=== PATIENT | female | born 1960 | race Caucasian/White ===

== ENCOUNTER 2016-11-14 07:32 | Inpatient (IN) | payer OTHER ==
--- NOTE | 2016-11-09 09:45 | Anesthesia Consultation ---
Anesthesia Consult and Med Hx Date of service: 11/09/16 - Airway Anesthetic Teeth Evaluation: Good ROM Head & Neck: Adequate Mental/Hyoid Distance: Adequate Mallampati Class: Class II Intubation Access Assessment: Probably Good - Pulmonary Exam CTA: Yes - Cardiac Exam Cardiac Exam: RRR - Pre-Operative Health Status ASA Pre-Surgery Classification: ASA1 Proposed Anesthetic Plan: General Nerve Block: TAP - Pulmonary Hx Asthma: No COPD: No Hx Pneumonia: No - Cardiovascular System Hx Hypertension: No - Central Nervous System Hx Psychiatric Problems: No - Endocrine Hx End Stage Renal Disease: No - Other Systems Hx Cancer: No
[2016-11-09 10:06] LABS: Basophils % (Auto) 0.6 % (0.0-1.8); Hematocrit 41.2 % (30.3-42.9); Mean Corpuscular HGB Conc 34 % (30-34); Mean Corpuscular Hemoglobin 31 pg (28-32); Mean Corpuscular Volume 89 fl (79-97); Platelet Count 219 K/mm3 (140-440); Red Cell Distribution Width 13.2 % (13.2-15.2); White Blood Count 5.4 K/mm3 (4.5-11.0)
[2016-11-09 10:22] LABS: Bacteria,Urine 1+ /HPF (Negative); Bilirubin,Urine NEG (Negative); Blood,Urine NEG (Negative); Ketones,Urine NEG (Negative); Leukocyte Esterase,Urine NEG (Negative); Mucus,Urine FEW /HPF; Nitrite,Urine NEG (Negative); Protein,Urine <15 mg/dL mg/dL (Negative); Urobilinogen,Urine < 2.0 mg/dL (<2.0)
[2016-11-09 11:29] LABS: Alanine Aminotransferase 18 units/L (7-56); Albumin 4.1 g/dL (3.9-5); Albumin/Globulin Ratio 1.5 %; Alkaline Phosphatase 68 units/L (35-129); Anion Gap 18 mmol/L; Bilirubin,Total 0.5 mg/dL (0.1-1.2); Blood Urea Nitrogen 9 mg/dL (7-17); Carbon Dioxide 23 mmol/L (22-30); Chloride 104.7 mmol/L (98-107); Glucose 96 mg/dL (65-100); Potassium 3.9 mmol/L (3.6-5.0); Sodium 142 mmol/L (137-145); Total Protein 6.8 g/dL (6.3-8.2)
[~2016-11-14 07:32] MED LIST: DILAUDID IV PRN; NACL 0.9% 1000 ML 1,000 ML IV SCH; NEURONTIN PO NR; PEPCID PO NR; SUBLIMAZE IV NR; VERSED IV NR; ZOFRAN IV PRN
[2016-11-14] MEDS ORDERED: MARCAINE-EPI 0.5%-1:200,000 INFILTRATI ONE (07:41)
[2016-11-14] MEDS ORDERED: MARCAINE-EPI 0.25%-1:200,000 INFILTRATI ONE (07:42)
[2016-11-14] MEDS ORDERED: XYLOCAINE 1% 20 mL ONE ×2 (07:43→12:55)
[2016-11-14] MEDS ORDERED: DILAUDID ONE (07:45)
[2016-11-14] MEDS ORDERED: DIPRIVAN 10 MG/ML IV ONE (07:45)
[2016-11-14] MEDS ORDERED: XYLOCAINE MPF 2% ONE (07:46)
[2016-11-14] MEDS ORDERED: ZEMURON IV ONE (07:46)
[2016-11-14] MEDS ORDERED: NACL BACTERIOSTATIC INFILTRATI ONE (08:10)
[2016-11-14] MEDS ORDERED: MARCAINE 0.5% 30 ML INFILTRATI ONE (08:29)
[2016-11-14] MEDS ORDERED: NEOSPORIN GU IR ONE ×2 (08:29→13:31)
[2016-11-14] MEDS ORDERED: ANCEF/STERILE WATER 2 GM/20 ML IV NR (09:00)
[2016-11-14] MEDS ORDERED: FLAGYL 500 MG/100 ML 500 MG/100 ML BAG IV ONE (09:32)
[2016-11-14] MEDS ORDERED: METHYLENE BLUE ONE (12:02)
[2016-11-14] MEDS ORDERED: DECADRON ONE ×2 (12:05→12:09)
[2016-11-14] MEDS ORDERED: NEOSTIGMINE ONE (12:05)
[2016-11-14] MEDS ORDERED: NACL 0.9% 1000 ML 1,000 ML ONE (12:05)
[2016-11-14] MEDS ORDERED: ROBINUL ONE (12:06)
[2016-11-14] MEDS ORDERED: ZOFRAN ONE (12:08)
[2016-11-14] MEDS ORDERED: METHYLENE BLUE IV ONE (12:30)
[2016-11-14] MEDS ORDERED: NACL P/F VIAL (10 ML) 20 ML ONE (12:55)
[2016-11-14] MEDS ORDERED: PREMARIN VG ONE ×2 (12:59→13:32)
[2016-11-14] MEDS ORDERED: MARCAINE 0.5% INFILTRATI ONE (13:30)
[2016-11-14] MEDS ORDERED: NACL 0.9% IR ONE (13:30)
[2016-11-14] MEDS ORDERED: XYLOCAINE 1% 20 mL INFILTRATI ONE (13:31)
[2016-11-14] MEDS ORDERED: NACL P/F VIAL (10 ML) INFILTRATI ONE (13:33)
[2016-11-14] MEDS ORDERED: PERCOCET 5/325 PO PRN (13:57)
[2016-11-14] MEDS ORDERED: ZOFRAN PO PRN (13:57)
[2016-11-14] MEDS ORDERED: SODIUM CHLORIDE FLUSH SYRINGE 10 ML IV PRN (13:57)
[2016-11-14] MEDS ORDERED: MILK OF MAGNESIA PO PRN (13:57)
[2016-11-14] MEDS ORDERED: TYLENOL PO PRN (13:57)
[2016-11-14] MEDS ORDERED: REGLAN IV PRN (13:57)
[2016-11-14] MEDS ORDERED: REGLAN PO PRN (13:57)
[2016-11-14] MEDS ORDERED: MORPHINE IV PRN ×2 (13:57)
[2016-11-14] MEDS ORDERED: ZOFRAN IV PRN (13:57)
--- NOTE | 2016-11-14 14:18 | Short Stay Summary ---
Short Stay Documentation Date of service: 11/14/16 - History H&P: obtained from office - Allergies and Medications Current Medications: Allergies hydrocodone Allergy (Verified 11/08/16 11:36) nausea and vomiting Home Medications Medication Instructions Recorded Confirmed Last Taken Type No Known Home Medications [No 11/08/16 11/08/16 Unknown History Reported Home Medications] Active Medications Acetaminophen (Tylenol) 650 mg PO Q4H PRN PRN Reason: Pain, Mild (1-3) Cefazolin Sodium (Ancef/Sterile Water 2 Gm/20 Ml) 2 gm IV PREOP NR Stop: 11/14/16 21:00 Celecoxib (Celebrex) 200 mg PO PREOP NR Stop: 11/14/16 23:59 Last Admin: 11/14/16 08:41 Dose: 200 mg Famotidine (Pepcid) 20 mg PO PREOP NR Stop: 11/14/16 23:59 Last Admin: 11/14/16 08:42 Dose: 20 mg Fentanyl (Sublimaze) 100 mcg IV ONCE NR Stop: 11/14/16 23:59 Gabapentin (Neurontin) 600 mg PO PREOP NR Stop: 11/14/16 23:59 Last Admin: 11/14/16 08:41 Dose: 600 mg Hydromorphone HCl (Dilaudid) 0.5 mg IV Q10MIN PRN PRN Reason: Pain , Severe (7-10) Stop: 11/14/16 16:00 Sodium Chloride (Nacl 0.9% 1000 Ml) 1,000 mls @ 100 mls/hr IV DIRECT DARREL Last Admin: 11/14/16 08:40 Dose: 100 mls/hr Cefazolin Sodium (Ancef/Ns 1 Gm/50 Ml) 1 gm in 50 mls @ 100 mls/hr IV Q8H DARREL PRN Reason: Protocol Stop: 11/14/16 22:29 Potassium Chloride/Dextrose/Sod Cl (D5w/0.45% Nacl/Kcl 20 Meq) 20 meq in 1,000 mls @ 125 mls/hr IV DIRECT DARREL Ketorolac Tromethamine (Toradol) 30 mg IV Q6H DARREL Stop: 11/19/16 13:59 Magnesium Hydroxide (Milk Of Magnesia) 30 ml PO Q4H PRN PRN Reason: Constipation Metoclopramide HCl (Reglan) 10 mg PO Q6H PRN PRN Reason: Nausea And Vomiting Metoclopramide HCl (Reglan) 10 mg IV Q6H PRN PRN Reason: Nausea And Vomiting Midazolam HCl (Versed) 2 mg IV PREOP NR Stop: 11/14/16 23:59 Last Admin: 11/14/16 08:45 Dose: 2 mg Morphine Sulfate (Morphine) 2 mg IV Q4H PRN PRN Reason: Pain, Moderate (4-6) Morphine Sulfate (Morphine) 4 mg IV Q4H PRN PRN Reason: Pain , Severe (7-10) Ondansetron HCl (Zofran) 4 mg IV ONCE PRN PRN Reason: Nausea And Vomiting Stop: 11/14/16 16:00 Ondansetron HCl (Zofran) 4 mg IV Q8H PRN PRN Reason: Nausea And Vomiting Ondansetron HCl (Zofran) 4 mg PO Q8H PRN PRN Reason: Nausea And Vomiting Oxycodone/Acetaminophen (Percocet 5/325) 1 tab PO Q6H PRN PRN Reason: Pain, Moderate (4-6) Pantoprazole Sodium (Protonix) 40 mg IV QDAY DARREL Sodium Chloride (Sodium Chloride Flush Syringe 10 Ml) 10 ml IJ PRN PRN PRN Reason: LINE FLUSH - Brief post op/procedure progress note Date of procedure: 11/14/16 Pre-op diagnosis: stage 3 vag prolapse, s/p prior hysterectomy &prolapse repair , urge incont Post-op diagnosis: same (abdominopelvic adhesions) Procedure: EUA, laparoscopic HOPE, robot-assisted hysterectomy HOPE, sacrocolpopexy, cystoscopy, anterior colporrhaphy using [place] tissue Anesthesia: GETA Findings: as per postop dx, gallbladder surgical absent. appendix and uterus surgically absent. normal bilateral tubes and bilateral ovaries. omental and bowel adhesion in the abdomen and pelvis. on cystoscopy: normal bladder, mild trabeculation, no lesions or masses, +demonstration of bilateral ureteral patency Surgeon: MINDY VILLATORO Estimated blood loss: minimal Pathology: none Condition: stable - Disposition Condition at discharge: Good Disposition: DISCHARGED TO HOME OR SELFCARE Short Stay Discharge Plan Follow up with: DIONI SANTIAGO MD [Primary Care Provider] - 7 Days
--- NOTE | 2016-11-14 14:28 | Admit Criteria Form ---
Admission Criteria Documentation: AMBULATORY SURGERY EXCEPTION CRITERIA Ambulatory Surgery Exception Criteria ( Place 'X' for any and all applicable criteria): Surgery or procedure performed on ambulatory basis may require inpatient stay for[A] ANY ONE of the following(1)(2)(3)(4)(5)(6)(7)(8)(9): [X] I. A preoperative situation, condition, or finding that warrants inpatient stay as indicated by ANY ONE of the following: [X] a) Inpatient care needed because of severity of a disease or condition rather than the surgery (eg, severe cardiac or respiratory disease, severe infection) (15) (16 ) (17) (18) [] b) Emergent procedure (eg, angioplasty for acute ischemia)(19) [] c) Complex surgical approach or situation as indicated by ANY ONE of the following(3): [] i) Open approach needed instead of usual endoscopic, transcatheter, or other less invasive procedure [] ii) Difficult approach because of previous operation [] iii) Airway monitoring required after open neck procedures(20)(21) [] iv) Large mass requiring unusually extensive dissection [] v) Additional complicating feature requiring inpatient care (eg, drain management)(22(23): [] d) Major surgery in a pt with high anesthetic risk as indicated by ANY ONE of the following (2)(3)(5)(7)(8): [] i) ASA risk class III or higher (severe systemic disease impairing function) [D] [] ii) Advanced age (eg, older than 85 years)(14)(24) [] iii) Symptomatic heart failure(25) [] iv) Symptomatic asthma or COPD(8)(21) [] v) Morbid obesity with hemodynamic or respiratory problems(20)( 21)(26)(27) [] vi) Obstructive sleep apnea(20)(21) [] vii) Former premature infants who are younger than 60 weeks [] viii) High risk for severe postoperative abnormalities (eg, severe postoperative hypocalcemia after parathyroidectomy for severe hyperparathyroidism)(27)( 28) [] ix) Unstable angina(25) [] e) Drug-related risk requiring inpatient stay as indicated by ANY ONE of the following(5)(10)(14)(32)(33) [] i) Procedure requires discontinuing drugs or other therapy (eg , antiarrhythmic medication, antiseizure medication), which necessitates inpatient observation or treatment.(18)(31) [] ii) Major surgery and high risk drug use as indicated by ANY ONE of the following: [] 1) Active abuse of cocaine or similar drug [] 2) Monoamine oxidase inhibitor use [] 3) Other drug identified as posing risk [] f) Inadequate outpatient care situation as indicated by ANY ONE of the following(5)(10)(14)(32)(33) [] i) Patient lives remote from medical facility and procedure has urgent complication potential, and temporary nearby residence cannot be arranged [] ii) Patient will have postprocedure incapacitation and inadequate assistance at home, or alternative level of care cannot be arranged. [] iii) Patient will have long general anesthesia or procedure side effect resolution time, and competent person to stay with patient on first postoperative night at home or alternative level of care cannot be arranged. []iv) Other inadequate outpatient situation that cannot be handled by other means [] II. A perioperative event, condition, or finding that warrants inpatient stay as indicated by ANY ONE of the following (1)(2)(3): [] a) Inadequate physiologic recovery: cardiovascular, respiratory, or hemodynamic status not normal or near preoperative baseline(18) [] b) Hemodynamic instability [] c) Patient not alert with near normal or baseline mental status [] d) Temperature not normal or as expected and not appropriate for outpatient treatment of condition [] e) Ambulatory or appropriate activity level status not yet achieved post procedure [E](34)(35)(36) [] f) Operative site not appropriate (eg, unexpected or excessive drainage or bleeding) [] g) Postoperative effects not resolved or adequately managed (eg, significant pain or vomiting not appropriate for outpatient or next level of care)(10)(12) [] h) Complicating features requiring inpatient care as indicated by ANY ONE of the following(37): [] i) Severe complications of procedure (eg, bowel injury, airway compromise, vascular injury,severe hemorrhage) [] ii) Extensive (eg, dissection far beyond usual scope of procedure ) or prolonged (eg, 120 minutes beyond usual) surgery needed requiring inpatient postoperative care [] iii) Conversion to an open or complex procedure that requires inpatient care (eg, open vs laparoscopic cholecystectomy, abdominal vs vaginal hysterectomy)(38) [] iv) Comorbid condition or test result identified during or post procedure that requires inpatient care (7) [] v) Malignant hyperthermia(30) [] vi) Other complicating feature requiring inpatient care(22)(23) Inpatient stay may be needed until ALL of the following are present (1)(2)(3)(4) (5)(6)(10)(14)(33)(40): []a) Physiologic recovery: cardiovascular, respiratory, and hemodynamic status normal or near preoperative baseline []b) Hemodynamic stability []c) Patient alert, with near normal or baseline mental status []d) Temperature appropriate: patient afebrile or temperature appropriate for outpt treatment of condition []e) Activity level appropriate: ambulatory or appropriate activity level post procedure []f) Operative site appropriate as indicated by ALL of the following: []i) Site dry or with expected drainage []ii) Any blood noted is as expected for procedure. []g) Postoperative effects resolved or managed as indicated by ALL of the following: []i) Pain management appropriate for outpatient (or next level of) care(10) []ii) Minimal nausea and vomiting: if present, successfully treated with oral medication(12) []iii) Headache, dizziness, or drowsiness (if present) are mild. []h) Voiding status acceptable as indicated by ANY ONE of the following: []i) Voiding spontaneously []ii) No voiding but instructions given for follow-up in 6 to 8 hours []iii) Urinary catheter in place, and instructions given for follow-up []i) Complicating features requiring inpatient care manageable at a lower level of care(37) []j) Comorbid conditions manageable at a lower level of care(37) The original [employer] content created by [employer] has been revised. The portions of the content which have been revised are identified through the use of italic text or in bold, and [employer] has neither reviewed nor approved the modified material. All other unmodified content is copyright [employer]. Please see references footnoted in the original [employer] edition 2016 Admission Criteria Met: Yes
--- NOTE | 2016-11-14 15:04 | Post Anesthesia Evaluation ---
- Post Anesthesia Evaluation Patient Participated: Yes Airway Patent: Yes Stable Respiratory Function: Yes Temp > 96.8F: Yes Pain Manageable: Yes Adequeate Hydration: Yes Anesthesia Complications: No Block Receding Appropriately: Not Applicable (Patient was extubated in PACU)
--- NOTE | 2016-11-14 15:43 | Operative Report ---
PREOPERATIVE DIAGNOSIS: 1. Stage 3 symptomatic vaginal prolapse involving the vaginal vault, anterior and posterior vaginal buchanan. 2. Status post prior hysterectomy. 3. Status post prior sacrocolpopexy. 4. Status post prior bladder suspension procedure. 5. Urgency incontinence. POSTOPERATIVE DIAGNOSES 1. Stage 3 symptomatic vaginal prolapse involving the vaginal vault, anterior and posterior vaginal buchanan. 2. Status post prior hysterectomy. 3. Status post prior sacrocolpopexy. 4. Status post prior bladder suspension procedure. 5. Urgency incontinence. 6. She had abdominal pelvic adhesions. PROCEDURE: EUA, laparoscopic lysis of adhesions, robotic-assisted lysis of adhesions, sacrocolpopexy, cystoscopy, anterior colporrhaphy using [place] tissue. ANESTHESIA: General. FINDINGS: As per postop diagnoses. Please make a note that her gallbladder, appendix and uterus were all surgically absent. She had normal bilateral tubes and bilateral ovaries. She had omental and bowel adhesions in the abdomen and pelvis. On cystoscopy, she had normal-appearing bladder with mild bladder trabeculations. There were no lesions or masses. She had demonstration of bilateral ureteral patency. SURGEON: Loretta Helms MD RN UROLOGY: Andreina Solorzano. ESTIMATED BLOOD LOSS: Less than 25. PATHOLOGY: None. CONDITION: Stable. INDICATIONS: The patient is a 56-year-old female with symptomatic recurrent pelvic organ prolapse. On examination, she has stage 3 prolapse of the vaginal vault with the anterior vaginal wall as the leading edge. She also has stage 1 posterior vaginal wall prolapse. She is status post a prior hysterectomy for benign disease, prior sacrocolpopexy by another physician, and prior bladder suspension procedure by another physician. She was not interested in a pessary, but desired definitive surgical treatment. Today, she is being brought to the operating room for EUA, probable laparoscopic lysis of adhesions, possible sacrocolpopexy, possible anterior and posterior repair, cystoscopy. DESCRIPTION OF PROCEDURE: The patient brought to the operating room where general anesthesia was administered without difficulty. She was prepared and draped in usual sterile fashion, positioned in the dorsal lithotomy position. A Arndt catheter was placed in the bladder. Attention was turned to the abdomen where a 5 mm optical trocar was placed in the left upper quadrant subcostal margin midclavicular line. A 12 mm trocar placed approximately 3 fingerbreadths superior to the umbilicus in the midline. An 8 and a 12 mm trocars placed 8-10 cm to the right of the midline. Two 8 mm trocars were placed 8-10 cm left of the midline. An additional 5 mm trocar was placed between the midline and and the right superior most trocars. The patient was noted to have omental adhesions. These were partially lysed using the monopolar scissors. We were unable to elevate the bowel out of the pelvis at this point due to abdominal and pelvic adhesions. The robot was properly docked. Inside the abdomen and pelvis, adhesiolysis was performed of the omental and bowel adhesions. I then began to dissect over the sacral promontory, dissecting the presacral fat in the presacral peritoneum. I started here knowing that this was the most difficult part of the case and if I was unable to dissect in this area that we would abort the case. Please note that prior to dissection of the sacral promontory, I thoroughly evaluated the site of her previous repair. There was evidence of mesh in the pelvis; however, the mesh no longer appeared to be attached to the anterior longitudinal ligament. It is unclear whether it pulled away from the ligament, but it was not attached to the ligament at the time of her surgery. I also noted that with an EEA sizer in the vagina, the most distal part of the mesh was not attached to the anterior or posterior vaginal buchanan or the vaginal cuff. I was able to dissect over the sacral promontory to the level of the anterior longitudinal ligament that was clearly visualized. 3-0 [place] sutures were placed through the ligament, taking excellent bite. At this point, a large EEA sizer was placed in the vagina. The bladder was dissected from the anterior vaginal wall and the rectovaginal space was clearly developed. A Y-shaped piece of Coloplast Restorelle large pore polypropylene mesh was then placed in the pelvis. The anterior leaf of the mesh was securely attached to the anterior vaginal wall using approximately 10 to 12-0 [place] sutures. In a similar fashion, the posterior leaf of the mesh was securely attached to the posterior vaginal wall using approximately 8 to 10-0 [place] sutures. Excess mesh was trimmed. The atrial retractor was used to tunnel retroperitoneally, beginning at the level of sacral promontory down to the rectovaginal space. The atrial tract was used to then grasp the tail of the Y-shaped mesh and bring it out through the tunnel back out at the level of sacral promontory. With the mesh under no tension, the mesh was securely attached to the anterior longitudinal ligament via the 3 [place]-Em[place] sutures, which have been previously placed there. Again, excess mesh was trimmed. Hemostasis was confirmed. There was no need to irrigate due to minimal blood loss during the time of surgery. Tisseel was generously applied to the retroperitoneal tunnel as well as over the vaginal cuff and anterior and posterior vaginal buchanan and into the rectovaginal space. The mesh was completely retroperitonealized using a 3-0 V-Loc suture in a running fashion. Following this, 2 sheets of Interceed were applied over the peritoneal incisions to provide an additional barrier between the mesh and the overlying bowel. Following this, all instruments were removed from the abdomen and pelvis. All fascial incisions greater than 8 mm were closed with 0 Vicryl suture. Skin was closed in subcuticular fashion. Dermabond was brought over the skin incisions. Examination of the vagina was performed. At this point, the patient was noted to have a stage 2 prolapse of the anterior vaginal wall, but excellent support of the posterior vaginal wall in the vaginal vault. Decision was made to proceed with anterior colporrhaphy using [place] tissue. In the interim, the Arndt catheter was temporarily removed so that diagnostic cystoscopy was performed. The findings were as noted above. Following this, the cystoscope was withdrawn and Arndt catheter was reinserted. A [place] retractor was used to obtain optimal visualization. Two [place]is clamps were applied to the anterior vaginal wall in the midline. The same area was elevated and infiltrated with 1% lidocaine without epinephrine which had been diluted half and half with injectable normal saline. Incision was made in the same area using the scalpel. The bladder was dissected from the anterior vaginal wall using a combination of sharp and blunt dissection. Hemostasis was visualized. The fascia was reapproximated in the midline using 2-0 Vicryl suture in an interrupted fashion. A second and third layer was used to provide the patient stronger support given her history of multiple failed repairs. Excess vaginal mucosa was not trimmed. The incision was irrigated. Hemostasis was confirmed. The incision was closed using 2-0 Vicryl suture in a running fashion. The vagina was irrigated. The vagina was then packed with a vaginal packing, which had been coated in Premarin vaginal cream. The patient tolerated the procedure well and was taken to the recovery room awake and in stable condition. [facility]# [id number] CHANELL/ARMANI
[2016-11-14] MEDS: D5W/0.45% NACL/KCL 20 MEQ 20 MEQ/1,000 ML BAG IV SCH (15:46)
[2016-11-14] MEDS: TORADOL IV SCH (20:45)
[2016-11-14] MEDS: FLAGYL 500 MG/100 ML 500 MG/100 ML BAG IV SCH (21:31)
[2016-11-15] MEDS: TORADOL IV SCH ×2 (02:04→11:16)
[2016-11-15] MEDS: ANCEF/NS 1 GM/50 ML 1 GM/50 ML BAG IV SCH ×2 (02:05)
[2016-11-15] MEDS: FLAGYL 500 MG/100 ML 500 MG/100 ML BAG IV SCH (05:23)
[2016-11-15] MEDS: D5W/0.45% NACL/KCL 20 MEQ 20 MEQ/1,000 ML BAG IV SCH (05:25)
[2016-11-15 07:01] LABS: Basophils % (Auto) 0.1 % (0.0-1.8); Hematocrit 37.9 % (30.3-42.9); Hemoglobin 12.9 gm/dl (10.1-14.3); Mean Corpuscular HGB Conc 34 % (30-34); Mean Corpuscular Hemoglobin 31 pg (28-32); Mean Corpuscular Volume 90 fl (79-97); Platelet Count 216 K/mm3 (140-440); Red Blood Count 4.24 M/mm3 (3.65-5.03); Red Cell Distribution Width 12.9 % (13.2-15.2); White Blood Count 10.9 K/mm3 (4.5-11.0)
[2016-11-15 07:14] LABS: Anion Gap 15 mmol/L; Blood Urea Nitrogen 6 mg/dL (7-17); Calcium 8.1 mg/dL (8.4-10.2); Carbon Dioxide 24 mmol/L (22-30); Glucose 113 mg/dL (65-100); Magnesium 1.8 mg/dL (1.7-2.3); Potassium 3.6 mmol/L (3.6-5.0); Sodium 141 mmol/L (137-145)
[2016-11-15] MEDS ORDERED: PROTONIX IV SCH (10:00)
[2016-11-15 16:33] VITALS: BP 109/71
== END 2016-11-15 17:10 | disposition home or self-care (01) | DRG 748 ==
LOC: OR 07:32 → 3A 07:37 → 2B-SURG 15:08
PROVIDERS: ADMIT Obstetrics & Gynecology Gynecology; ATTEND Obstetrics & Gynecology Gynecology
PROC: 0USG4ZZ Reposition Vagina, Percutaneous Endoscopic Approach (ICD-10-PCS; principal; 2016-11-14)
PROC: 0JQC3ZZ Repair Pelvic Region Subcutaneous Tissue and Fascia, Percutaneous Approach (ICD-10-PCS; 2016-11-14)
PROC: 0DNW4ZZ Release Peritoneum, Percutaneous Endoscopic Approach (ICD-10-PCS; 2016-11-14)
PROC: 8E0W4CZ Robotic Assisted Procedure of Trunk Region, Percutaneous Endoscopic Approach (ICD-10-PCS; 2016-11-14)
DX: N99.3 Prolapse of vaginal vault after hysterectomy (principal); R32 Unspecified urinary incontinence; N73.6 Female pelvic peritoneal adhesions (postinfective); Z90.710 Acquired absence of both cervix and uterus; Z88.8 Allergy status to other drugs, medicaments and biological substances
CPT/HCPCS: 36415; 80048; 80053; 81001; 83735; 85025; 86850; 86900; 86901; C1765; C1781; C9113; C9250; J0690; J1100; J1170; J1885; J2250; J2270; J2405; J2704; J2710; J7030; Q9968